=== PATIENT | male | born 1980 | race Caucasian/White ===

== ENCOUNTER 2021-05-25 12:32 | Emergency (ER) | payer OTHER, SELFPAY ==
--- NOTE | ~2021-05-25 | XR_ITS ---
EXAMINATION: XR chest 2V 05/25/2021 13:21 INDICATION: Shortness of breath. Cough. Covid exposure. PROCEDURE: 2 view chest COMPARISON: No prior studies for comparison. FINDINGS: The lungs are clear. The cardiomediastinal silhouette is within normal limits. There are no pleural effusions. There is no pneumothorax suspected. IMPRESSION: 1: NO ACUTE CARDIOPULMONARY DISEASE. Reviewed, dictated and finalized at location A.
[2021-05-25 12:47] VITALS: BP 136/89; PULSE 105; RESP 18; TEMP 37.4; O2SAT 98
--- NOTE | 2021-05-25 12:52 | ECG_ITS ---
Measurements Intervals [place] Rate: 100 P: 39 CO: 134 QRS: 16 QRSD: 81 T: 30 QT: 313 QTc: 404 Interpretive Statements SINUS TACHYCARDIA BASELINE WANDER- AVF BORDERLINE ECG Electronically Signed On 05-25-2021 13:20:10 CDT by Nathan Gonzalez D.O.
[2021-05-25 13:14] LABS: Basophils Percent Auto 0.7 % (0.2-1.2); Eosinophils Percent Auto 0.2 % (0-4.4); Hematocrit 46.1 % (42.0-52.0); Hemoglobin 15.6 g/dL (14.0-18.0); Immature Granulocyte Absolute 0.03 K/mm3 (0.00-0.031); Immature Granulocyte Percent A 0.5 % (0-0.5); Lymphocytes Absolute Auto 1.33 K/mm3 (0.9-3.2); Lymphocytes Percent Auto 21.9 % (18.3-44.2); Mean Corpuscular HGB Conc 33.8 g/dl (32-36); Mean Corpuscular Hemoglobin 31.3 pg (26-34); Mean Corpuscular Volume 92.4 fl (80-100); Mean Platelet Volume 8.7 fl (7.4-10.4); Monocytes Absolute Auto 1.2 K/mm3 (0.1-0.6); Monocytes Percent Auto 20.3 % (2.6-8.5); Neutrophils Absolute Auto 3.4 K/mm3 (1.3-6.7); Neutrophils Percent Auto 56.4 % (45.5-73.1); Platelet Count Result 207 k/mm3 (150-375); Red Blood Count 4.99 M/mm3 (4.6-6.20); Red Cell Distribution Width 12.7 % (11.5-14.5); White Blood Count 6.1 K/mm3 (4.5-10.0)
[2021-05-25 13:23] LABS: Anion Gap 8 mmol/L (8-16); Blood Urea Nitrogen 15 mg/dL (9-20); Calcium 8.8 mg/dL (8.4-10.2); Carbon Dioxide 26 mmol/L (22-30); Chloride 105 mmol/L (98-107); Estimated CRCL calculation 103 ml/min; Estimated Glomerular Filt Rate > 60; Glucose 93 mg/dL (65-110); Potassium 4.2 mmol/L (3.4-5.0); Sodium 139 mmol/L (137-145)
--- NOTE | 2021-05-25 16:47 | ED.GENADULT ---
HPI - General Adult General Chief complaint: Shortness of Breath/Dyspnea Stated complaint: SOB, H/A, COVID EXPOSURE Time Seen by Provider: 05/25/21 16:32 History of Present Illness HPI narrative: Patient 40-year-old gentleman who presents to emergency department with chief complaint of COVID-19 symptoms. Patient reports that he was sharing a vehicle with an individual who has tested positive and is currently admitted for COVID-19. Patient states that he shared a hotel room and also shared riding in a vehicle with the other individual for an extended period of time and started developing symptoms about 48 hours ago. Patient reports he is unvaccinated for COVID-19 states he was going to get it when he finally got home next month patient states that he has had a dry cough reports has had body aches and reports he has felt a little short of breath particular whenever he ambulates. Review of Systems Review of Systems: A 10 system review of systems was completed on the patient and is negative except for what is stated in the HPI. Nursing and ancillary documentation was reviewed. Exam Narrative: GENERAL: Well-appearing, well-nourished, and in no acute distress. HEAD: Normocephalic, atraumatic. EYES: PERRLA and EOMI. ENT: Nares clear, no rhinorrhea or epistaxis. Mucous membranes moist. NECK: Supple. CHEST: Clear to auscultation. No respiratory distress. HEART: Regular rate and rhythm. No murmur heard. Normal peripheral pulses. ABDOMEN: Soft, nontender, nondistended, normal active bowel sounds. EXTREMITIES: Normal range of motion. No edema. SKIN: Warm, dry, no rash. NEURO: No focal deficits. Alert and oriented x3. PSYCH: Normal mood and affect. Course Vital Signs Vital signs: Vital Signs Temperature 37.4 C 05/25/21 12:47 Pulse Rate 105 H 05/25/21 12:47 Respiratory Rate 18 05/25/21 12:47 Blood Pressure 136/89 05/25/21 12:47 Pulse Oximetry 98 05/25/21 12:47 Temperature 37.4 C 05/25/21 12:47 Pulse Rate 105 H 05/25/21 12:47 Respiratory Rate 18 05/25/21 12:47 Blood Pressure 136/89 05/25/21 12:47 Pulse Oximetry 98 05/25/21 12:47 Medical Decision Making Vital Signs Vital Signs: Vital Signs Temperature 37.4 C 05/25/21 12:47 Pulse Rate 105 H 05/25/21 12:47 Respiratory Rate 18 05/25/21 12:47 Blood Pressure 136/89 05/25/21 12:47 Pulse Oximetry 98 05/25/21 12:47 Temperature 37.4 C 05/25/21 12:47 Pulse Rate 105 H 05/25/21 12:47 Respiratory Rate 18 05/25/21 12:47 Blood Pressure 136/89 05/25/21 12:47 Pulse Oximetry 98 05/25/21 12:47 Lab Data Result diagrams: 05/25/21 13:06 05/25/21 13:06 Labs: Lab Results 05/25/21 05/25/21 05/25/21 Range/Units 13:06 13:06 17:04 WBC 6.1 (4.5-10.0) K/mm3 RBC 4.99 (4.6-6.20) M/mm3 Hgb 15.6 (14.0-18.0) g/dL Hct 46.1 (42.0-52.0) % MCV 92.4 (80-100) fl MCH 31.3 (26-34) pg MCHC 33.8 (32-36) g/dl RDW 12.7 (11.5-14.5) % Plt Count 207 (150-375) k/mm3 MPV 8.7 (7.4-10.4) fl Immature Gran % (Auto) 0.5 (0-0.5) % Neut % (Auto) 56.4 (45.5-73.1) % Lymph % (Auto) 21.9 (18.3-44.2) % [place] % (Auto) 20.3 H (2.6-8.5) % Eos % (Auto) 0.2 (0-4.4) % Baso % (Auto) 0.7 (0.2-1.2) % Lymph # (Auto) 1.33 (0.9-3.2) K/mm3 [place] # (Auto) 1.2 H (0.1-0.6) K/mm3 Eos # (Auto) 0.0 (0-0.3) K/mm3 Baso # (Auto) 0.0 (0.0-0.1) K/mm3 Abs Immat Gran (auto) 0.03 (0.00-0.031) K/mm3 Absolute Neuts (auto) 3.4 (1.3-6.7) K/mm3 Absolute Nucleated RBC 0.0 (0.0-0.012) K/mm3 Nucleated RBC % 0.0 (0.0-0.2) % Sodium 139 (137-145) mmol/L Potassium 4.2 (3.4-5.0) mmol/L Chloride 105 (98-107) mmol/L Carbon Dioxide 26 (22-30) mmol/L Anion Gap 8 (8-16) mmol/L BUN 15 (9-20) mg/dL Creatinine 1.00 (0.7-1.3) mg/dL Estim Creat Clear Calc 103 ml/min Estimated GFR > 60 (59 - ) Glucose 93 (65-1
[2021-05-25] MEDS: ALBUTEROL SULFATE (*SP) INHALER 2 PUFF INHALATION (17:15)
[2021-05-25] MEDS: BENZONATATE 100 MG CAPSULE 200 MG PO (17:29)
[2021-05-25] MEDS: ACETAMINOPHEN 500 MG TABLET 1000 MG PO (17:29)
[2021-05-26 16:56] LABS: SARS-CoV-2 RNA PCR Positive
== END 2021-05-25 18:25 | disposition home or self-care (01) ==
PROVIDERS: Emergency Medicine; Emergency Provider Emergency Medicine
DX: U07.1 COVID-19 (principal)
CPT/HCPCS: 36415; 71046; 80048; 85025; 93005; 99283; A9270; C9803; U0003; U0005